=== PATIENT | female | born 1990 | race American Indian/Alaskan Native ===

== ENCOUNTER 2017-04-15 07:42 | Inpatient (IN) | payer OTHER ==
--- NOTE | 2017-04-15 07:55 | Emergency Department Report ---
ED General Adult HPI - General Chief complaint: Seizure Stated complaint: SEIZURE Time Seen by Provider: 04/15/17 07:50 Source: patient, EMS (verbal report received from EMS.ems notes not available at time of chart dictation) Limitations: Other (the patient is a aphasic/dysarthric. However, she is able to answer to yes no questions, and she is able to write down some answers.) - History of Present Illness Initial comments: This is a 26-year-old female. She has previously unknown to me. The patient is brought to the hospital by EMS for seizure and altered mental status. EMS reports that they got a call at 7:00 AM. 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 They report normal fingerstick in the field. Upon arrival to the ER, the patient was nonverbal. She was awake , and was able to follow commands, but indicated that she is unable to formulate words. The patient indicated that she is not having headache, neck pain, chest pain, abdominal pain or shortness of breath. The patient did indicate that she was taking Trileptal by writing it down. The patient is unable to describe exacerbating or relieving factors. -: Sudden Consistency: constant Improves with: none Worsens with: none Associated Symptoms: denies: chest pain - Related Data Home Medications Medication Instructions Recorded Confirmed Last Taken carBAMazepine [TEGretol] 200 mg PO Q12HR 04/15/17 04/15/17 04/14/17 Previous Rx's Medication Instructions Recorded Last Taken Type OXcarbazepine [Trileptal] 600 mg PO BID #60 tablet 04/16/17 Unknown Rx SUMAtriptan SUCCINATE [Imitrex] 50 mg PO Q4H PRN #14 tablet 04/16/17 Unknown Rx Allergies Allergy/AdvReac Type Severity Reaction Status Date / Time No Known Allergies Allergy Unverified 04/15/17 11:27 ED Review of Systems ROS: Stated complaint: SEIZURE Other details as noted in HPI Comment: Unobtainable due to pts medical conditions ED Past Medical Hx - Medications Home Medications: Home Medications Medication Instructions Recorded Confirmed Last Taken Type carBAMazepine [TEGretol] 200 mg PO Q12HR 04/15/17 04/15/17 04/14/17 History OXcarbazepine [Trileptal] 600 mg PO BID #60 tablet 04/16/17 Unknown Rx SUMAtriptan SUCCINATE [Imitrex] 50 mg PO Q4H PRN #14 tablet 04/16/17 Unknown Rx ED Physical Exam - General Limitations: Physical Limitation General appearance: alert, in distress - Head Head exam: Present: atraumatic, normocephalic - Eye Eye exam: Present: normal appearance, EOMI. Absent: nystagmus - ENT ENT exam: Present: normal exam, normal orophraynx, mucous membranes moist, normal external ear exam - Neck Neck exam: Present: normal inspection, full ROM. Absent: tenderness, meningismus - Respiratory Respiratory exam: Present: normal lung sounds bilaterally. Absent: respiratory distress, wheezes, rales, rhonchi, stridor, chest wall tenderness, accessory muscle use, decreased breath sounds, prolonged expiratory - Cardiovascular Cardiovascular Exam: Present: normal rhythm, tachycardia, normal heart sounds. Absent: systolic murmur, diastolic murmur, rubs, gallop - GI/Abdominal GI/Abdominal exam: Present: soft, normal bowel sounds. Absent: distended, tenderness, guarding, rebound, rigid, pulsatile mass - Extremities Exam Extremities exam: Present: normal inspection, full ROM, normal capillary refill. Absent: tenderness, pedal edema, joint swelling, calf tenderness - Back Exam Back exam: Present: normal inspection, full ROM. Absent: tenderness, CVA tenderness (R), CVA tenderness (L), muscle spasm, paraspinal tenderness, vertebral tenderness - Neurological Exam Neurological exam: Present: alert, other (Extraocular movements intact. Tongue midline. No facial droop. Facial sensation intact to light touch in the V1, V2 , V3 distribution bilaterally. 5 and 5 strength in 4 extremities.. Sensation is intact to light touch in 4 extremities.). Absent: motor sensory deficit - Psychiatric Psychiatric exam: Present: anxious - Skin Skin exam: Present: warm, dry, intact, normal color. Absent: rash ED Course Vital Signs 04/15/17 04/15/17 04/15/17 07:48 08:16 08:54 Temperature 98.7 F Pulse Rate 108 H 87 Respiratory 18 18 Rate Blood Pressure 142/82 Blood Pressure 131/83 [Right] O2 Sat by Pulse 99 99 Oximetry 04/15/17 08:57 Temperature Pulse Rate Respiratory 18 Rate Blood Pressure Blood Pressure [Right] O2 Sat by Pulse 99 Oximetry - Reevaluation(s) Reevaluation #1: 04/15/17 08:03 differential diagnosis: Josh's paralysis, seizure, stroke, transient ischemic attack, heatstroke, conversion disorder, electrolyte derangement, urinary tract infection, pneumonia Assessment and plan: 26-year-old female with reported history of seizure in a hot work environment. The patient's rectal temperature is 90.8 degrees, she is awake, and follows commands, and has a nonlateralizing, nonfocal neurologic examination. The patient is unable to speak in clear sentences, however, she is able nod her head to "yes/no" questions, and she is able to write legibly. As per verbal report from EMS, symptoms started just before 7:00 AM. Code stroke is called overhead. Patient indicated that she is not . Reevaluation #2: 04/15/17 09:16 The patient is seen and interviewed by stroke neurology, Dr. Dutta. He does not recommend tpa at this this time. He does recommend emergent MR of the brain and MR angiogram, recommended admission to the medical service. Aspirin is ordered. Case is presented to the nurse practitioner of the medical service, John Diamond, and she accepts the patient to her service. 04/15/17 10:06 Reevaluation #3: 04/15/17 11:18 patient speaking in full sentences to her significant other at this time. MR is negative ED Medical Decision Making - Lab Data Result diagrams: 04/16/17 04:33 04/16/17 04:33 Vital Signs 04/15/17 04/15/17 04/15/17 07:48 08:16 08:54 Temperature 98.7 F Pulse Rate 108 H 87 Respiratory 18 18 Rate Blood Pressure 142/82 Blood Pressure 131/83 [Right] O2 Sat by Pulse 99 99 Oximetry 04/15/17 08:57 Temperature Pulse Rate Respiratory 18 Rate Blood Pressure Blood Pressure [Right] O2 Sat by Pulse 99 Oximetry Lab Results 04/15/17 04/15/17 04/15/17 Range/Units 07:50 07:50 07:50 WBC 7.9 (4.5-11.0) K/mm3 RBC 4.38 (3.65-5.03) M/mm3 Hgb 13.6 (10.1-14.3) gm/dl Hct 38.7 (30.3-42.9) % MCV 88 (79-97) fl MCH 31 (28-32) pg MCHC 35 H (30-34) % RDW 13.1 L (13.2-15.2) % Plt Count 299 (140-440) K/mm3 Lymph % (Auto) 35.9 H (13.4-35.0) % [place] % (Auto) 7.0 (0.0-7.3) % Eos % (Auto) 1.7 (0.0-4.3) % Baso % (Auto) 0.4 (0.0-1.8) % Lymph # 2.8 (1.2-5.4) K/mm3 [place] # 0.6 (0.0-0.8) K/mm3 Eos # 0.1 (0.0-0.4) K/mm3 Baso # 0.0 (0.0-0.1) K/mm3 Seg Neutrophils % 55.0 (40.0-70.0) % Seg Neutrophils # 4.4 (1.8-7.7) K/mm3 PT 13.5 (12.2-14.9) Sec. INR 0.98 (0.87-1.13) APTT 24.6 (24.2-36.6) Sec. Thrombin Time 15.7 (15.1-19.6) Sec. Sodium 140 (137-145) mmol/L Potassium 3.9 (3.6-5.0) mmol/L Chloride 102.4 (98-107) mmol/L Carbon Dioxide 24 (22-30) mmol/L Anion Gap 18 mmol/L BUN 7 (7-17) mg/dL Creatinine 0.6 L (0.7-1.2) mg/dL Estimated GFR > 60 ml/min BUN/Creatinine Ratio 11.66 % Glucose 112 H (65-100) mg/dL Lactic Acid (0.7-2.0) mmol/L Calcium 9.1 (8.4-10.2) mg/dL Total Bilirubin 0.30 (0.1-1.2) mg/dL AST 20 (5-40) units/L ALT 15 (7-56) units/L Alkaline Phosphatase 52 (35-129) units/L Total Creatine Kinase 151 H (30-135) units/L CK-MB (CK-2) 1.4 (0.0-4.0) ng/mL CK-MB (CK-2) Rel Index 0.9 (0-4) Troponin T < 0.010 (0.00-0.029) ng/mL Total Protein 7.7 (6.3-8.2) g/dL Albumin 4.3 (3.9-5) g/dL Albumin/Globulin Ratio 1.3 % HCG, Quant (0-4) mIU/mL Urine Color (Yellow) Urine Turbidity (Clear) Urine pH (5.0-7.0) Ur Specific [place] (1.003-1.030) Urine Protein (Negative) mg/dL Urine Glucose (UA) (Negative) mg/dL Urine Ketones (Negative) mg/dL Urine Blood (Negative) Urine Nitrite (Negative) Urine Bilirubin (Negative) Urine Urobilinogen (<2.0) mg/dL Ur Leukocyte Esterase (Negative) Urine WBC (Auto) (0.0-6.0) /HPF Urine RBC (Auto) (0.0-6.0) /HPF U Epithel Cells (Auto) (0-13.0) /HPF Urine Bacteria (Auto) (Negative) /HPF Salicylates (2.8-20.0) mg/dL Acetaminophen (10.0-30.0) ug/mL Plasma/Serum Alcohol (0-0.07) gm% 04/15/17 04/15/17 04/15/17 Range/Units 07:50 07:50 07:50 WBC (4.5-11.0) K/mm3 RBC (3.65-5.03) M/mm3 Hgb (10.1-14.3) gm/dl Hct (30.3-42.9) % MCV (79-97) fl MCH (28-32) pg MCHC (30-34) % RDW (13.2-15.2) % Plt Count (140-440) K/mm3 Lymph % (Auto) (13.4-35.0) % [place] % (Auto) (0.0-7.3) % Eos % (Auto) (0.0-4.3) % Baso % (Auto) (0.0-1.8) % Lymph # (1.2-5.4) K/mm3 [place] # (0.0-0.8) K/mm3 Eos # (0.0-0.4) K/mm3 Baso # (0.0-0.1) K/mm3 Seg Neutrophils % (40.0-70.0) % Seg Neutrophils # (1.8-7.7) K/mm3 PT (12.2-14.9) Sec. INR (0.87-1.13) APTT (24.2-36.6) Sec. Thrombin Time (15.1-19.6) Sec. Sodium (137-145) mmol/L Potassium (3.6-5.0) mmol/L Chloride (98-107) mmol/L Carbon Dioxide (22-30) mmol/L Anion Gap mmol/L BUN (7-17) mg/dL Creatinine (0.7-1.2) mg/dL Estimated GFR ml/min BUN/Creatinine Ratio % Glucose (65-100) mg/dL Lactic Acid (0.7-2.0) mmol/L Calcium (8.4-10.2) mg/dL Total Bilirubin (0.1-1.2) mg/dL AST (5-40) units/L ALT (7-56) units/L Alkaline Phosphatase (35-129) units/L Total Creatine Kinase (30-135) units/L CK-MB (CK-2) (0.0-4.0) ng/mL CK-MB (CK-2) Rel Index (0-4) Troponin T (0.00-0.029) ng/mL Total Protein (6.3-8.2) g/dL Albumin (3.9-5) g/dL Albumin/Globulin Ratio % HCG, Quant (0-4) mIU/mL Urine Color (Yellow) Urine Turbidity (Clear) Urine pH (5.0-7.0) Ur Specific [place] (1.003-1.030) Urine Protein (Negative) mg/dL Urine Glucose (UA) (Negative) mg/dL Urine Ketones (Negative) mg/dL Urine Blood (Negative) Urine Nitrite (Negative) Urine Bilirubin (Negative) Urine Urobilinogen (<2.0) mg/dL Ur Leukocyte Esterase (Negative) Urine WBC (Auto) (0.0-6.0) /HPF Urine RBC (Auto) (0.0-6.0) /HPF U Epithel Cells (Auto) (0-13.0) /HPF Urine Bacteria (Auto) (Negative) /HPF Salicylates < 0.3 L (2.8-20.0) mg/dL Acetaminophen < 15.0 (10.0-30.0) ug/mL Plasma/Serum Alcohol < 0.01 (0-0.07) gm% 04/15/17 04/15/17 04/15/17 Range/Units 07:50 08:27 09:19 WBC (4.5-11.0) K/mm3 RBC (3.65-5.03) M/mm3 Hgb (10.1-14.3) gm/dl Hct (30.3-42.9) % MCV (79-97) fl MCH (28-32) pg MCHC (30-34) % RDW (13.2-15.2) % Plt Count (140-440) K/mm3 Lymph % (Auto) (13.4-35.0) % [place] % (Auto) (0.0-7.3) % Eos % (Auto) (0.0-4.3) % Baso % (Auto) (0.0-1.8) % Lymph # (1.2-5.4) K/mm3 [place] # (0.0-0.8) K/mm3 Eos # (0.0-0.4) K/mm3 Baso # (0.0-0.1) K/mm3 Seg Neutrophils % (40.0-70.0) % Seg Neutrophils # (1.8-7.7) K/mm3 PT (12.2-14.9) Sec. INR (0.87-1.13) APTT (24.2-36.6) Sec. Thrombin Time (15.1-19.6) Sec. Sodium (137-145) mmol/L Potassium (3.6-5.0) mmol/L Chloride (98-107) mmol/L Carbon Dioxide (22-30) mmol/L Anion Gap mmol/L BUN (7-17) mg/dL Creatinine (0.7-1.2) mg/dL Estimated GFR ml/min BUN/Creatinine Ratio % Glucose (65-100) mg/dL Lactic Acid 1.40 (0.7-2.0) mmol/L Calcium (8.4-10.2) mg/dL Total Bilirubin (0.1-1.2) mg/dL AST (5-40) units/L ALT (7-56) units/L Alkaline Phosphatase (35-129) units/L Total Creatine Kinase (30-135) units/L CK-MB (CK-2) (0.0-4.0) ng/mL CK-MB (CK-2) Rel Index (0-4) Troponin T (0.00-0.029) ng/mL Total Protein (6.3-8.2) g/dL Albumin (3.9-5) g/dL Albumin/Globulin Ratio % HCG, Quant < 2 (0-4) mIU/mL Urine Color Straw (Yellow) Urine Turbidity Clear (Clear) Urine pH 7.0 (5.0-7.0) Ur Specific [place] 1.004 (1.003-1.030) Urine Protein <15 mg/dl (Negative) mg/dL Urine Glucose (UA) Neg (Negative) mg/dL Urine Ketones Neg (Negative) mg/dL Urine Blood Neg (Negative) Urine Nitrite Neg (Negative) Urine Bilirubin Neg (Negative) Urine Urobilinogen < 2.0 (<2.0) mg/dL Ur Leukocyte Esterase Neg (Negative) Urine WBC (Auto) 1.0 (0.0-6.0) /HPF Urine RBC (Auto) 2.0 (0.0-6.0) /HPF U Epithel Cells (Auto) 2.0 (0-13.0) /HPF Urine Bacteria (Auto) 1+ (Negative) /HPF Salicylates (2.8-20.0) mg/dL Acetaminophen (10.0-30.0) ug/mL Plasma/Serum Alcohol (0-0.07) gm% - EKG Data -: EKG Interpreted by Me EKG shows normal: sinus rhythm, axis, intervals, QRS complexes, ST-T waves - Radiology Data Radiology results: report reviewed, image reviewed Noncontrast CT scan of the brain is negative Critical care attestation.: If time is entered above; I have spent that time in minutes in the direct care of this critically ill patient, excluding procedure time. ED Disposition Clinical Impression: Dysarthria, Convulsion Disposition: [id number] OP ADMIT IP TO THIS HOSP Is pt being admited?: Yes Does the pt Need Aspirin: Yes Condition: Good
[2017-04-15 08:08] LABS: Basophils % (Auto) 0.4 % (0.0-1.8); Eosinophils % (Auto) 1.7 % (0.0-4.3); Hematocrit 38.7 % (30.3-42.9); Hemoglobin 13.6 gm/dl (10.1-14.3); Mean Corpuscular HGB Conc 35 % (30-34); Mean Corpuscular Hemoglobin 31 pg (28-32); Mean Corpuscular Volume 88 fl (79-97); Platelet Count 299 K/mm3 (140-440); Red Blood Count 4.38 M/mm3 (3.65-5.03); Red Cell Distribution Width 13.1 % (13.2-15.2); White Blood Count 7.9 K/mm3 (4.5-11.0)
[2017-04-15 08:21] LABS: INR 0.98 (0.87-1.13); Partial Thromboplastin Time 24.6 Sec. (24.2-36.6)
[2017-04-15 08:28] LABS: Alanine Aminotransferase 15 units/L (7-56); Albumin 4.3 g/dL (3.9-5); Albumin/Globulin Ratio 1.3 %; Alkaline Phosphatase 52 units/L (35-129); Anion Gap 18 mmol/L; BUN/Creatinine Ratio 11.66; Blood Urea Nitrogen 7 mg/dL (7-17); Calcium 9.1 mg/dL (8.4-10.2); Carbon Dioxide 24 mmol/L (22-30); Chloride 102.4 mmol/L (98-107); Creatine Kinase 151 units/L (30-135); Creatine Kinase MB 1.4 ng/mL (0.0-4.0); Glucose 112 mg/dL (65-100); Potassium 3.9 mmol/L (3.6-5.0); Sodium 140 mmol/L (137-145); Total Protein 7.7 g/dL (6.3-8.2)
--- NOTE | 2017-04-15 08:32 | Cat Scan Report ---
CRANIAL CT SCAN: Neurologic changes. Serial contiguous axial images were obtained through the cranium. Intravenous contrast material was not administered. The ventricles are normal in size and appearance. There is no mass effect or midline shift. No areas of abnormally increased or decreased attenuation are seen. No mass lesion is seen. The mastoid air cells and visualized portions of the sinuses are normal. IMPRESSION: Cranial CT scan within normal limits. Report called to Dr. Norris 8:25 AM.
[2017-04-15 09:46] LABS: Urine Drugs of Abuse Note Disclamer
[2017-04-15 10:02] LABS: Bacteria,Urine 1+ /HPF (Negative); Bilirubin,Urine NEG (Negative); Blood,Urine NEG (Negative); Ketones,Urine NEG (Negative); Leukocyte Esterase,Urine NEG (Negative); Nitrite,Urine NEG (Negative); Protein,Urine <15 mg/dL mg/dL (Negative); Urobilinogen,Urine < 2.0 mg/dL (<2.0)
[2017-04-15] MEDS ORDERED: BABY ASPIRIN PO ONE (10:08)
--- NOTE | 2017-04-15 10:32 | History and Physical Report ---
<NORM HAZEL - Last Filed: 04/15/17 14:53> History of Present Illness Date of examination: 04/15/17 Date of admission: 04/15/2017 Chief complaint: Tonic-clonic seizure History of present illness: Patient is a 26-year-old -Guyanese female with past medical history of seizure who is brought to the hospital by EMS for seizure and altered mental status. Patient currently nonverbal follows simple command. Patient understood the basic words spoken, but struggle to get words out, Therefore poor historian. Patient had generalized tonic-clonic seizure this morning while she was at work. Patient coworkers report that she had a normal fingerstick in the field. History obtained from ER physician and charts. patient denies headache, chest pain shortness of breath or neck pain. Patient Tegretol 200mg BID by mouth at home. Past History Past Medical History: seizures ( Tegretol 200mg daily ) Past Surgical History: No surgical history Social history: (Lesbian ), smoking Family history: diabetes, hypertension Medications and Allergies Allergies Allergy/AdvReac Type Severity Reaction Status Date / Time No Known Allergies Allergy Unverified 04/15/17 11:27 Home Medications Medication Instructions Recorded Confirmed Last Taken Type carBAMazepine [TEGretol] 200 mg PO Q12HR 04/15/17 04/15/17 04/14/17 History Review of Systems Constitutional: no weight loss, no weight gain, no fever, no chills, no sweats, no night sweats Ears, nose, mouth and throat: no ear pain, no ear discharge, no tinnitis, no decreased hearing Breasts: no swelling, no mass Cardiovascular: no chest pain, no orthopnea, no palpitations, no rapid/ irregular heart beat, no syncope Respiratory: no cough with sputum, no excessive sputum, no hemoptysis, no shortness of breath Gastrointestinal: no vomiting, no diarrhea, no constipation, no change in bowel habits, no hematemesis Genitourinary Female: no dysmenorrhea, no pelvic pain, no flank pain, no menorrhagia, no dysuria Menstruation: no currently menstrual, no premenarcheal, no post hysterectomy, no ammenorrhea, no ammenorrhea on BC Rectal: no pain Musculoskeletal: no neck stiffness, no neck pain, no shooting arm pain, no arm numbness/tingling Integumentary: no rash, no pruritis, no redness, no sores Neurological: no head injury, no transient paralysis, no paralysis, no weakness Psychiatric: no anxiety, no memory loss, no change in sleep habits Endocrine: no cold intolerance, no heat intolerance, no polyphagia Hematologic/Lymphatic: no easy bruising, no easy bleeding Allergic/Immunologic: no urticaria, no allergic rhinitis Exam - Constitutional Vitals: Temp Pulse Resp BP Pulse Ox 98.7 F 87 18 131/83 99 04/15/17 08:16 04/15/17 08:54 04/15/17 08:57 04/15/17 08:54 04/15/17 08:57 General appearance: Present: no acute distress, other (nonverbal) - EENT Eyes: Present: PERRL ENT: hearing intact - Neck Neck: Present: supple - Respiratory Respiratory effort: normal Respiratory: bilateral: CTA - Cardiovascular Heart rate: 69 Rhythm: regular - Extremities Extremities: no ischemia Peripheral Pulses: within normal limits - Abdominal General gastrointestinal: Present: soft, non-tender - Rectal Rectal Exam: deferred - Integumentary Integumentary: Present: clear, warm, dry - Musculoskeletal Musculoskeletal: strength equal bilaterally - Psychiatric Psychiatric: other (nonverbal) - Neurologic Neurologic: CNII-XII intact, other - Allied Health Allied health notes reviewed: nursing Results - Labs CBC & Chem 7: 04/15/17 07:50 04/15/17 07:50 Labs: Laboratory Last Values WBC 7.9 K/mm3 (4.5-11.0) 04/15/17 07:50 RBC 4.38 M/mm3 (3.65-5.03) 04/15/17 07:50 Hgb 13.6 gm/dl (10.1-14.3) 04/15/17 07:50 Hct 38.7 % (30.3-42.9) 04/15/17 07:50 MCV 88 fl (79-97) 04/15/17 07:50 MCH 31 pg (28-32) 04/15/17 07:50 MCHC 35 % (30-34) H 04/15/17 07:50 RDW 13.1 % (13.2-15.2) L 04/15/17 07:50 Plt Count 299 K/mm3 (140-440) 04/15/17 07:50 Lymph % (Auto) 35.9 % (13.4-35.0) H 04/15/17 07:50 Ballard % (Auto) 7.0 % (0.0-7.3) 04/15/17 07:50 Eos % (Auto) 1.7 % (0.0-4.3) 04/15/17 07:50 Baso % (Auto) 0.4 % (0.0-1.8) 04/15/17 07:50 Lymph # 2.8 K/mm3 (1.2-5.4) 04/15/17 07:50 Ballard # 0.6 K/mm3 (0.0-0.8) 04/15/17 07:50 Eos # 0.1 K/mm3 (0.0-0.4) 04/15/17 07:50 Baso # 0.0 K/mm3 (0.0-0.1) 04/15/17 07:50 Seg Neutrophils % 55.0 % (40.0-70.0) 04/15/17 07:50 Seg Neutrophils # 4.4 K/mm3 (1.8-7.7) 04/15/17 07:50 PT 13.5 Sec. (12.2-14.9) 04/15/17 07:50 INR 0.98 (0.87-1.13) 04/15/17 07:50 APTT 24.6 Sec. (24.2-36.6) 04/15/17 07:50 Thrombin Time 15.7 Sec. (15.1-19.6) 04/15/17 07:50 Sodium 140 mmol/L (137-145) 04/15/17 07:50 Potassium 3.9 mmol/L (3.6-5.0) 04/15/17 07:50 Chloride 102.4 mmol/L (98-107) 04/15/17 07:50 Carbon Dioxide 24 mmol/L (22-30) 04/15/17 07:50 Anion Gap 18 mmol/L 04/15/17 07:50 BUN 7 mg/dL (7-17) 04/15/17 07:50 Creatinine 0.6 mg/dL (0.7-1.2) L 04/15/17 07:50 Estimated GFR > 60 ml/min 04/15/17 07:50 BUN/Creatinine Ratio 11.66 % 04/15/17 07:50 Glucose 112 mg/dL (65-100) H 04/15/17 07:50 Lactic Acid 1.40 mmol/L (0.7-2.0) 04/15/17 08:27 Calcium 9.1 mg/dL (8.4-10.2) 04/15/17 07:50 Total Bilirubin 0.30 mg/dL (0.1-1.2) 04/15/17 07:50 AST 20 units/L (5-40) 04/15/17 07:50 ALT 15 units/L (7-56) 04/15/17 07:50 Alkaline Phosphatase 52 units/L (35-129) 04/15/17 07:50 Total Creatine Kinase 151 units/L (30-135) H 04/15/17 07:50 CK-MB (CK-2) 1.4 ng/mL (0.0-4.0) 04/15/17 07:50 CK-MB (CK-2) Rel Index 0.9 (0-4) 04/15/17 07:50 Troponin T < 0.010 ng/mL (0.00-0.029) 04/15/17 07:50 Total Protein 7.7 g/dL (6.3-8.2) 04/15/17 07:50 Albumin 4.3 g/dL (3.9-5) 04/15/17 07:50 Albumin/Globulin Ratio 1.3 % 04/15/17 07:50 HCG, Quant < 2 mIU/mL (0-4) 04/15/17 07:50 Urine Color Straw (Yellow) 04/15/17 09:19 Urine Turbidity Clear (Clear) 04/15/17 09:19 Urine pH 7.0 (5.0-7.0) 04/15/17 09:19 Ur Specific Gilman 1.004 (1.003-1.030) 04/15/17 09:19 Urine Protein <15 mg/dl mg/dL (Negative) 04/15/17 09:19 Urine Glucose (UA) Neg mg/dL (Negative) 04/15/17 09:19 Urine Ketones Neg mg/dL (Negative) 04/15/17 09:19 Urine Blood Neg (Negative) 04/15/17 09:19 Urine Nitrite Neg (Negative) 04/15/17 09:19 Urine Bilirubin Neg (Negative) 04/15/17 09:19 Urine Urobilinogen < 2.0 mg/dL (<2.0) 04/15/17 09:19 Ur Leukocyte Esterase Neg (Negative) 04/15/17 09:19 Urine WBC (Auto) 1.0 /HPF (0.0-6.0) 04/15/17 09:19 Urine RBC (Auto) 2.0 /HPF (0.0-6.0) 04/15/17 09:19 U Epithel Cells (Auto) 2.0 /HPF (0-13.0) 04/15/17 09:19 Urine Bacteria (Auto) 1+ /HPF (Negative) 04/15/17 09:19 Salicylates < 0.3 mg/dL (2.8-20.0) L 04/15/17 07:50 Acetaminophen < 15.0 ug/mL (10.0-30.0) 04/15/17 07:50 Plasma/Serum Alcohol < 0.01 gm% (0-0.07) 04/15/17 07:50 - Imaging and Cardiology MRI - head: image reviewed (normal MRA, neck,head and brain ) Assessment and Plan Assessment and plan: Patient is a 26-year-old -Guyanese female with past medical history of seizure who is brought to the hospital by EMS for seizure and altered mental status. Patient Tegretol 200mg BID by mouth at home. Patient has normal MRA, neck,head and brain Tonic-Clonic Convulsion Negative MRA of the neck, head and brain Normal Ct of the head EEG requested for service. Started on home antiseizure Tegretol 200mg twice a day by mouth. IV Ativan as necessary IV fluid hydration Oxygen as needed Rule out Cerebrovascular accident (CVA) Started on Asprin Normal CT of the head and MR of the brain TPA not recommend per Neurology Neurology consulted Ongoing Cigarette Smoking Smoking sensation counseling done patient was strongly advised to quit smoking and patient agreed upon course of function. DVT prophylaxis Lovenox <NASEEM KENDRICK - Last Filed: 04/15/17 15:05> History of Present Illness Date of admission: 04/15/17 10:35 Medications and Allergies Active Meds: Active Medications Acetaminophen (Tylenol) 650 mg PO Q4H PRN PRN Reason: Pain MILD(1-3)/Fever >100.5/MCCLAIN Aspirin (Aspirin) 325 mg PO QDAY FIONA Bisacodyl (Dulcolax) 10 mg ND QDAY PRN PRN Reason: Constipation unrelieved by MOM Carbamazepine (Tegretol) 200 mg PO Q12HR FIONA Dextrose/Sodium Chloride (D5ns) 1,000 mls @ 75 mls/hr IV DIRECT FIONA Last Admin: 04/15/17 13:25 Dose: 75 mls/hr Lorazepam (Ativan) 2 mg IV Q4H PRN PRN Reason: Seizures Exam - Constitutional Vitals: Temp Pulse Resp BP Pulse Ox 98.6 F 69 18 106/69 100 04/15/17 12:18 04/15/17 12:18 04/15/17 12:18 04/15/17 12:18 04/15/17 14:39 Results - Labs CBC & Chem 7: 04/15/17 07:50 04/15/17 07:50 Labs: Laboratory Last Values WBC 7.9 K/mm3 (4.5-11.0) 04/15/17 07:50 RBC 4.38 M/mm3 (3.65-5.03) 04/15/17 07:50 Hgb 13.6 gm/dl (10.1-14.3) 04/15/17 07:50 Hct 38.7 % (30.3-42.9) 04/15/17 07:50 MCV 88 fl (79-97) 04/15/17 07:50 MCH 31 pg (28-32) 04/15/17 07:50 MCHC 35 % (30-34) H 04/15/17 07:50 RDW 13.1 % (13.2-15.2) L 04/15/17 07:50 Plt Count 299 K/mm3 (140-440) 04/15/17 07:50 Lymph % (Auto) 35.9 % (13.4-35.0) H 04/15/17 07:50 Ballard % (Auto) 7.0 % (0.0-7.3) 04/15/17 07:50 Eos % (Auto) 1.7 % (0.0-4.3) 04/15/17 07:50 Baso % (Auto) 0.4 % (0.0-1.8) 04/15/17 07:50 Lymph # 2.8 K/mm3 (1.2-5.4) 04/15/17 07:50 Ballard # 0.6 K/mm3 (0.0-0.8) 04/15/17 07:50 Eos # 0.1 K/mm3 (0.0-0.4) 04/15/17 07:50 Baso # 0.0 K/mm3 (0.0-0.1) 04/15/17 07:50 Seg Neutrophils % 55.0 % (40.0-70.0) 04/15/17 07:50 Seg Neutrophils # 4.4 K/mm3 (1.8-7.7) 04/15/17 07:50 PT 13.5 Sec. (12.2-14.9) 04/15/17 07:50 INR 0.98 (0.87-1.13) 04/15/17 07:50 APTT 24.6 Sec. (24.2-36.6) 04/15/17 07:50 Thrombin Time 15.7 Sec. (15.1-19.6) 04/15/17 07:50 Sodium 140 mmol/L (137-145) 04/15/17 07:50 Potassium 3.9 mmol/L (3.6-5.0) 04/15/17 07:50 Chloride 102.4 mmol/L (98-107) 04/15/17 07:50 Carbon Dioxide 24 mmol/L (22-30) 04/15/17 07:50 Anion Gap 18 mmol/L 04/15/17 07:50 BUN 7 mg/dL (7-17) 04/15/17 07:50 Creatinine 0.6 mg/dL (0.7-1.2) L 04/15/17 07:50 Estimated GFR > 60 ml/min 04/15/17 07:50 BUN/Creatinine Ratio 11.66 % 04/15/17 07:50 Glucose 112 mg/dL (65-100) H 04/15/17 07:50 Lactic Acid 1.40 mmol/L (0.7-2.0) 04/15/17 08:27 Calcium 9.1 mg/dL (8.4-10.2) 04/15/17 07:50 Total Bilirubin 0.30 mg/dL (0.1-1.2) 04/15/17 07:50 AST 20 units/L (5-40) 04/15/17 07:50 ALT 15 units/L (7-56) 04/15/17 07:50 Alkaline Phosphatase 52 units/L (35-129) 04/15/17 07:50 Total Creatine Kinase 151 units/L (30-135) H 04/15/17 07:50 CK-MB (CK-2) 1.4 ng/mL (0.0-4.0) 04/15/17 07:50 CK-MB (CK-2) Rel Index 0.9 (0-4) 04/15/17 07:50 Troponin T < 0.010 ng/mL (0.00-0.029) 04/15/17 07:50 Total Protein 7.7 g/dL (6.3-8.2) 04/15/17 07:50 Albumin 4.3 g/dL (3.9-5) 04/15/17 07:50 Albumin/Globulin Ratio 1.3 % 04/15/17 07:50 HCG, Quant < 2 mIU/mL (0-4) 04/15/17 07:50 Urine Color Straw (Yellow) 04/15/17 09:19 Urine Turbidity Clear (Clear) 04/15/17 09:19 Urine pH 7.0 (5.0-7.0) 04/15/17 09:19 Ur Specific Gilman 1.004 (1.003-1.030) 04/15/17 09:19 Urine Protein <15 mg/dl mg/dL (Negative) 04/15/17 09:19 Urine Glucose (UA) Neg mg/dL (Negative) 04/15/17 09:19 Urine Ketones Neg mg/dL (Negative) 04/15/17 09:19 Urine Blood Neg (Negative) 04/15/17 09:19 Urine Nitrite Neg (Negative) 04/15/17 09:19 Urine Bilirubin Neg (Negative) 04/15/17 09:19 Urine Urobilinogen < 2.0 mg/dL (<2.0) 04/15/17 09:19 Ur Leukocyte Esterase Neg (Negative) 04/15/17 09:19 Urine WBC (Auto) 1.0 /HPF (0.0-6.0) 04/15/17 09:19 Urine RBC (Auto) 2.0 /HPF (0.0-6.0) 04/15/17 09:19 U Epithel Cells (Auto) 2.0 /HPF (0-13.0) 04/15/17 09:19 Urine Bacteria (Auto) 1+ /HPF (Negative) 04/15/17 09:19 Salicylates < 0.3 mg/dL (2.8-20.0) L 04/15/17 07:50 Urine Opiates Screen Presumptive negative 04/15/17 09:19 Urine Methadone Screen Presumptive negative 04/15/17 09:19 Acetaminophen < 15.0 ug/mL (10.0-30.0) 04/15/17 07:50 Ur Barbiturates Screen Presumptive negative 04/15/17 09:19 Ur Phencyclidine Scrn Presumptive negative 04/15/17 09:19 Ur Amphetamines Screen Presumptive negative 04/15/17 09:19 U Benzodiazepines Scrn Presumptive negative 04/15/17 09:19 Urine Cocaine Screen Presumptive negative 04/15/17 09:19 U Marijuana (THC) Screen Presumptive negative 04/15/17 09:19 Drugs of Abuse Note Disclamer 04/15/17 09:19 Plasma/Serum Alcohol < 0.01 gm% (0-0.07) 04/15/17 07:50 Assessment and Plan Assessment and plan: I saw and evaluated the patient. I agree with the findings and the plan of care as documented in the Nurse Practitioner's~note, with the following corrections and additions. patient seen and examined, clear lungs, PERRLA, S1,S2, no nystagmus, Patient reports compliance with seizure medications Denies polysubstance abuse Reports headache. Will consult Neurology Continue AED Tyenol#3 for headache. Advance Directives: Yes VTE prophylaxis?: Chemical, Mechanical Plan of care discussed with patient/family: Yes
[2017-04-15] MEDS ORDERED: ATIVAN IV PRN (10:33)
[2017-04-15] MEDS ORDERED: DULCOLAX PR PRN (10:35)
[2017-04-15] MEDS ORDERED: TYLENOL PO PRN (10:35)
--- NOTE | 2017-04-15 10:52 | Magnetic Resonance Report ---
MRI BRAIN WITHOUT CONTRAST INDICATION: Seizure versus CVA. COMPARISON: Head CT from earlier today. FINDINGS: Noncontrast multiplanar and multisequence MRI of the brain demonstrates normal ventricles and sulci without acute infarct, hemorrhage, mass effect or midline shift. No abnormal extra-axial masses or fluid collections. Normal major intracranial vascular flow voids. Normal posterior fossa structures with symmetric seventh and eighth nerve complexes. Symmetric, grossly unremarkable eye globes. Clear paranasal sinuses and mastoid air cells. Nasal septal deviation. Normal midline structures without evidence of Chiari malformation, though cerebellar tonsils reach the foramen magnum. CONCLUSION: No acute intracranial MRI abnormality, as described. Thank you for the opportunity to participate in this patient's care.
--- NOTE | 2017-04-15 10:54 | Magnetic Resonance Report ---
MRA HEAD WITHOUT CONTRAST INDICATION: Seizure versus CVA. COMPARISON: None similar. FINDINGS: MRA of the head performed without intravenous contrast and demonstrates no evidence of flow-limiting stenosis, occlusion or vascular malformation. PCOM seen on the right. Please note that detection of aneurysms less than 5 mm is limited on this exam. CONCLUSION: Normal study of the [place]. Thank you for the opportunity to participate in this patient's care.
--- NOTE | 2017-04-15 10:58 | Magnetic Resonance Report ---
MRA NECK WITHOUT CONTRAST: INDICATION: CVA versus seizure. COMPARISON: None similar. FINDINGS: MRA of the neck performed without IV contrast demonstrates patent aortic arch with normal major branching pattern. Imaged innominate, subclavian, vertebral and carotid arteries appear unremarkable. CONCLUSION: Normal MRA of the neck without significant stenosis. Thank you for the opportunity to participate in this patient's care.
--- NOTE | 2017-04-15 11:05 | Admit Criteria Form ---
Admission Criteria Documentation: SEIZURE Clinical Indications for Admission to Inpatient Care (Place 'X' for any and all applicable criteria): Admission is indicated for seizure and ANY ONE of the following(1)(2)(3)(4)(5): [X ]I. Inpatient admission required rather than observation care (Also use Seizure: Observation Care Criteria as appropriate) because of ANY ONE of the following: [ ]a) Altered mental status that is severe or persistent [ ]b) New focal neurologic deficit that is severe or persistent [ ]c) Metabolic disorder (eg, hypoglycemia, hyponatremia) that is severe or persistent [ ]d) Recurrent seizure [ ]e) Outpatient antiseizure regimen cannot be established (eg , patient cannot tolerate medication, initiation requires inpatient care) [ ]f) Need for ongoing intravenous infusion of antiseizure medication [ ]g) Cardiac arrhythmias of immediate concern [ ]h) Cerebral bleeding, hydrocephalus, or vasospasm monitoring (14) [ ]i) Increased intracranial pressure or cerebral edema monitoring (15) [X ]j) Other treatment or monitoring requiring inpatient admission [ ]II. Status epilepticus [A] or repetitive seizures not controlled with emergent treatment (6)(8) [ ]III. Brain disorder (eg, tumor, edema, and hydrocephalus) that requiring monitoring or intervention available only at inpatient level of care. [ ]IV. Brain insult (eg, severe trauma, stroke, drug toxicity, or withdrawal) that requires monitoring or intervention available only at inpatient level of care (10)(11) Extended stay beyond goal length of stay may be needed for (22) [ ]a) Complications of status epilepticus [ ]b) Refractory status epilepticus [ ]c) Etiology-specific therapy for conditions such as MATERIAL HAULER infection, head injury,eclampsia, severe metabolic abnormalities, and brain tumor [ ]d) Residual neurologic damage, [ ]e) Initiation of significant change to anticonvulsant treatment [ ]f) Older patients (65 years or older) [ ]g) Patient requiring intubation (eg, to protect airway) The original [employer] content created by [employer] has been revised. The portions of the content which have been revised are identified through the use of italic text or in bold, and [employer] has neither reviewed nor approved the modified material. All other unmodified content is copyright [facility] [employer]. Please see references footnoted in the original [facility] edition 2016 Admission Criteria Met: Yes
[2017-04-15] MEDS ORDERED: TYLENOL/CODEINE PO ONE (13:00)
[2017-04-15] MEDS: D5NS 1,000 ML IV SCH (13:25)
[2017-04-16] MEDS: D5NS 1,000 ML IV SCH (01:15)
[2017-04-16 05:35] LABS: Basophils % (Auto) 0.7 % (0.0-1.8); Hematocrit 38.3 % (30.3-42.9); Hemoglobin 12.9 gm/dl (10.1-14.3); Mean Corpuscular HGB Conc 34 % (30-34); Mean Corpuscular Hemoglobin 31 pg (28-32); Mean Corpuscular Volume 91 fl (79-97); Platelet Count 279 K/mm3 (140-440); Red Blood Count 4.23 M/mm3 (3.65-5.03); Red Cell Distribution Width 13.2 % (13.2-15.2); White Blood Count 6.4 K/mm3 (4.5-11.0)
[2017-04-16 05:51] LABS: Anion Gap 16 mmol/L; BUN/Creatinine Ratio 12.85; Blood Urea Nitrogen 9 mg/dL (7-17); Calcium 8.6 mg/dL (8.4-10.2); Carbon Dioxide 24 mmol/L (22-30); Chloride 104.1 mmol/L (98-107); Glucose 109 mg/dL (65-100); Potassium 4.5 mmol/L (3.6-5.0); Sodium 140 mmol/L (137-145)
--- NOTE | 2017-04-16 07:33 | Progress Note ---
Assessment and Plan Assessment and plan: Assessment and Plan Assessment and plan: Patient is a 26-year-old -[place] female with past medical history of seizure who is brought to the hospital by EMS for seizure and altered mental status. Patient Tegretol 200mg BID by mouth at home. Patient has normal MRA, neck,head and brain Tonic-Clonic Convulsion Negative MRA of the neck, head and brain Normal Ct of the head EEG requested for service. Started on home antiseizure Tegretol 200mg twice a day by mouth. IV Ativan as necessary IV fluid hydration Oxygen as needed Rule out Cerebrovascular accident (CVA) Started on Asprin Normal CT of the head and MR of the brain TPA not recommend per Neurology Neurology consulted Tobacco use Smoking sensation counseling done patient was strongly advised to quit smoking and patient agreed upon course of function. DVT prophylaxis [employer] Hospitalist Physical - Constitutional Vitals: Temp Pulse Resp BP Pulse Ox 98.5 F 76 16 99/54 98 04/15/17 23:45 04/15/17 23:45 04/15/17 23:45 04/15/17 23:45 04/15/17 23:45 General appearance: Present: no acute distress, other (nonverbal) Results - Labs CBC & Chem 7: 04/16/17 04:33 04/16/17 04:33 Labs: Laboratory Last Values WBC 6.4 K/mm3 (4.5-11.0) 04/16/17 04:33 RBC 4.23 M/mm3 (3.65-5.03) 04/16/17 04:33 Hgb 12.9 gm/dl (10.1-14.3) 04/16/17 04:33 Hct 38.3 % (30.3-42.9) 04/16/17 04:33 MCV 91 fl (79-97) D 04/16/17 04:33 MCH 31 pg (28-32) 04/16/17 04:33 MCHC 34 % (30-34) 04/16/17 04:33 RDW 13.2 % (13.2-15.2) 04/16/17 04:33 Plt Count 279 K/mm3 (140-440) 04/16/17 04:33 Lymph % (Auto) 36.7 % (13.4-35.0) H 04/16/17 04:33 Baker % (Auto) 7.6 % (0.0-7.3) H 04/16/17 04:33 Eos % (Auto) 2.0 % (0.0-4.3) 04/16/17 04:33 Baso % (Auto) 0.7 % (0.0-1.8) 04/16/17 04:33 Lymph # 2.4 K/mm3 (1.2-5.4) 04/16/17 04:33 Baker # 0.5 K/mm3 (0.0-0.8) 04/16/17 04:33 Eos # 0.1 K/mm3 (0.0-0.4) 04/16/17 04:33 Baso # 0.0 K/mm3 (0.0-0.1) 04/16/17 04:33 Seg Neutrophils % 53.0 % (40.0-70.0) 04/16/17 04:33 Seg Neutrophils # 3.4 K/mm3 (1.8-7.7) 04/16/17 04:33 PT 13.5 Sec. (12.2-14.9) 04/15/17 07:50 INR 0.98 (0.87-1.13) 04/15/17 07:50 APTT 24.6 Sec. (24.2-36.6) 04/15/17 07:50 Thrombin Time 15.7 Sec. (15.1-19.6) 04/15/17 07:50 Sodium 140 mmol/L (137-145) 04/16/17 04:33 Potassium 4.5 mmol/L (3.6-5.0) 04/16/17 04:33 Chloride 104.1 mmol/L (98-107) 04/16/17 04:33 Carbon Dioxide 24 mmol/L (22-30) 04/16/17 04:33 Anion Gap 16 mmol/L 04/16/17 04:33 BUN 9 mg/dL (7-17) 04/16/17 04:33 Creatinine 0.7 mg/dL (0.7-1.2) 04/16/17 04:33 Estimated GFR > 60 ml/min 04/16/17 04:33 BUN/Creatinine Ratio 12.85 % 04/16/17 04:33 Glucose 109 mg/dL (65-100) H 04/16/17 04:33 Lactic Acid 1.40 mmol/L (0.7-2.0) 04/15/17 08:27 Calcium 8.6 mg/dL (8.4-10.2) 04/16/17 04:33 Total Bilirubin 0.30 mg/dL (0.1-1.2) 04/15/17 07:50 AST 20 units/L (5-40) 04/15/17 07:50 ALT 15 units/L (7-56) 04/15/17 07:50 Alkaline Phosphatase 52 units/L (35-129) 04/15/17 07:50 Total Creatine Kinase 151 units/L (30-135) H 04/15/17 07:50 CK-MB (CK-2) 1.4 ng/mL (0.0-4.0) 04/15/17 07:50 CK-MB (CK-2) Rel Index 0.9 (0-4) 04/15/17 07:50 Troponin T < 0.010 ng/mL (0.00-0.029) 04/15/17 07:50 Total Protein 7.7 g/dL (6.3-8.2) 04/15/17 07:50 Albumin 4.3 g/dL (3.9-5) 04/15/17 07:50 Albumin/Globulin Ratio 1.3 % 04/15/17 07:50 HCG, Quant < 2 mIU/mL (0-4) 04/15/17 07:50 Urine Color Straw (Yellow) 04/15/17 09:19 Urine Turbidity Clear (Clear) 04/15/17 09:19 Urine pH 7.0 (5.0-7.0) 04/15/17 09:19 Ur Specific [place] 1.004 (1.003-1.030) 04/15/17 09:19 Urine Protein <15 mg/dl mg/dL (Negative) 04/15/17 09:19 Urine Glucose (UA) Neg mg/dL (Negative) 04/15/17 09:19 Urine Ketones Neg mg/dL (Negative) 04/15/17 09:19 Urine Blood Neg (Negative) 04/15/17 09:19 Urine Nitrite Neg (Negative) 04/15/17 09:19 Urine Bilirubin Neg (Negative) 04/15/17 09:19 Urine Urobilinogen < 2.0 mg/dL (<2.0) 04/15/17 09:19 Ur Leukocyte Esterase Neg (Negative) 04/15/17 09:19 Urine WBC (Auto) 1.0 /HPF (0.0-6.0) 04/15/17 09:19 Urine RBC (Auto) 2.0 /HPF (0.0-6.0) 04/15/17 09:19 U Epithel Cells (Auto) 2.0 /HPF (0-13.0) 04/15/17 09:19 Urine Bacteria (Auto) 1+ /HPF (Negative) 04/15/17 09:19 Salicylates < 0.3 mg/dL (2.8-20.0) L 04/15/17 07:50 Urine Opiates Screen Presumptive negative 04/15/17 09:19 Urine Methadone Screen Presumptive negative 04/15/17 09:19 Acetaminophen < 15.0 ug/mL (10.0-30.0) 04/15/17 07:50 Ur Barbiturates Screen Presumptive negative 04/15/17 09:19 Ur Phencyclidine Scrn Presumptive negative 04/15/17 09:19 Ur Amphetamines Screen Presumptive negative 04/15/17 09:19 U Benzodiazepines Scrn Presumptive negative 04/15/17 09:19 Urine Cocaine Screen Presumptive negative 04/15/17 09:19 U Marijuana (THC) Screen Presumptive negative 04/15/17 09:19 Drugs of Abuse Note Disclamer 04/15/17 09:19 Plasma/Serum Alcohol < 0.01 gm% (0-0.07) 04/15/17 07:50
[2017-04-16] MEDS ORDERED: IMITREX PO PRN (09:23)
[2017-04-16] MEDS ORDERED: ASPIRIN PO SCH (10:00)
--- NOTE | 2017-04-16 10:14 | Discharge Summary ---
Providers - Providers Date of Admission: 04/15/17 10:35 Date of discharge: 04/16/17 Attending physician: NASEEM KENDRICK MD 04/15/17 12:23 Consult to Physician [CONS] Routine Consulting Provider: BESSIE OLIVER Reason For Exam: seizure Place consult to:: DR Oliver Notified:: message left Phone number called:: [phone] Was contact made?: No 04/15/17 18:11 Speech Therapy Evaluation and Treat [CONS] Routine Reason For Exam: sudden aphasia Primary care physician: SENIOR COURT OFFICE ASSISTANT Hospitalization Condition: Good Hospital course: Patient is a 26-year-old -Faroese female with past medical history of seizure who is brought to the hospital by EMS for seizure and altered mental status. Patient currently nonverbal follows simple command. Patient was diagnosed for tonic clonic convulsion, Migraine and Ongoing tobacco smoking . She has been treated with anticonvulsants, IV fluid and tryptamine. No seizure episode since admission. Patient upon arrival postictal state, she was to struggle to get words out but today is much improved. Patient currently alert and oriented to person,place,time and situation. She is being discharged on Trileptal and increased the does per neurology. Patient cleared by neurology. Patient stable for discharge. She has been ambulating back and forth to the bathroom unassisted. Also Ongoing tobacco use smoking cessation counseling done patient strongly advised to quit. Patient agreed upon course of action. Patient advised to follow-up with neurology. Diagnosed Tonic-Clonic Convulsion Rule out Cerebrovascular accident (CVA) Ongoing tobacco use smoking Migraine Disposition: DC- TO HOME OR SELFCARE Time spent for discharge: 33 minutes Core Measure Documentation - Palliative Care Palliative Care/ Comfort Measures: Not Applicable - Core Measures Any of the following diagnoses?: none Exam - Constitutional Vitals: Temp Pulse Resp BP Pulse Ox 98.0 F 89 18 92/51 97 04/16/17 07:42 04/16/17 07:42 04/16/17 07:42 04/16/17 07:42 04/16/17 09:36 General appearance: Present: no acute distress - EENT Eyes: Present: PERRL ENT: hearing intact - Neck Neck: Present: supple - Respiratory Respiratory effort: normal - Cardiovascular Heart rate: 89 Rhythm: regular Heart Sounds: Present: S1 & S2 - Extremities Extremities: no ischemia Peripheral Pulses: within normal limits - Abdominal General gastrointestinal: Present: soft, non-tender Female genitourinary: Present: deferred - Rectal Rectal Exam: deferred - Integumentary Integumentary: Present: clear, warm, dry - Musculoskeletal Musculoskeletal: strength equal bilaterally - Psychiatric Psychiatric: appropriate mood/affect - Neurologic Neurologic: CNII-XII intact - Allied Health Allied health notes reviewed: nursing Plan Follow up with: PRIMARY CAREMD [Primary Care Provider] - 3-5 Days Prescriptions: OXcarbazepine [Trileptal] 600 mg PO BID #60 tablet SUMAtriptan SUCCINATE [Imitrex] 50 mg PO Q4H PRN #14 tablet PRN Reason: Migraine Headache
--- NOTE | 2017-04-16 10:49 | Consultation ---
History of Present Illness Consult date: 04/16/17 Requesting physician: NASEEM KENDRICK Reason for Consult: seizure Chief complaint: seizure History of present illness: 26-year-old female Hx seizure since 2011 compliant on Trileptal 500mg BID recent stress of typical migraine and buying home brought to the hospital by EMS for seizure and altered mental status on 04/15. EMS reports that they got a call at 7:00 AM. 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 Upon arrival to the ER, the patient was nonverbal. She was awake, and was able to follow commands, but indicated that she is unable to formulate words. Sz lasted ? 1-2 mins. There were no clear aggravating, relieving or temporal factors. Severity was enough to cause LOC.. Past History Past Medical History: seizures ( Tegretol 200mg daily ) Past Surgical History: No surgical history Social history: (Lesbian ), smoking Family history: diabetes, hypertension Medications and Allergies Allergies Allergy/AdvReac Type Severity Reaction Status Date / Time No Known Allergies Allergy Unverified 04/15/17 11:27 Home Medications Medication Instructions Recorded Confirmed Last Taken Type carBAMazepine [TEGretol] 200 mg PO Q12HR 04/15/17 04/15/17 04/14/17 History SUMAtriptan SUCCINATE [Imitrex] 50 mg PO Q4H PRN #14 tablet 04/16/17 Unknown Rx Active Meds: Active Medications Acetaminophen (Tylenol) 650 mg PO Q4H PRN PRN Reason: Pain MILD(1-3)/Fever >100.5/MCCLAIN Aspirin (Aspirin) 325 mg PO QDAY [facility] Last Admin: 04/16/17 10:39 Dose: 325 mg Bisacodyl (Dulcolax) 10 mg CA QDAY PRN PRN Reason: Constipation unrelieved by MOM Dexamethasone (Decadron) 8 mg IV ONCE ONE Stop: 04/16/17 10:44 Valproate Sodium 500 mg/ (Sodium Chloride) 105 mls @ 100 mls/hr IV ONCE ONE Stop: 04/16/17 11:46 Lorazepam (Ativan) 2 mg IV Q4H PRN PRN Reason: Seizures Oxcarbazepine (Trileptal) 600 mg PO BID [facility] Sumatriptan Succinate (Imitrex) 50 mg PO Q4H PRN PRN Reason: Migraine Headache Last Admin: 04/16/17 10:39 Dose: 50 mg Review of Systems All systems: negative Neurological: seizures, headaches, migraines, no weakness, no numbness, no tingling, no change in speech, no change in mentation, no confusion, no gait dysfunction, no motor disturbance, no sensory deficit, no double vision, no loss of vision Physical Examination - Vital Signs Vital Signs: Vital Signs Pulse Resp BP Pulse Ox 108 H 18 142/82 99 04/15/17 07:48 04/15/17 07:48 04/15/17 07:48 04/15/17 07:48 - Constitutional General appearance: comfortable - EENT EENT: Present: ATNC, PERRL, mucous membranes moist, hearing intact, vision intact - Respiratory Respiratory: Present: chest non-tender, normal breath sounds, no respiratory distress - Cardiovascular Cardiovascular: Present: regular rate Extremities: Present: no peripheral edema bilatateraly, no clubbing, cyanosis, no inflammation, no ischemia or petechiae - Gastrointestinal Gastrointestinal: Present: normoactive bowel sounds, soft, non-distended - Integumentary Integumentary: Present: normal - Neurologic Cranial nerve examination: PERRL, EOMI, VFF, V1/V2/V3 grossly intact, face symmetric, tongue midline, intact, Intact Vestibulo-ocular r, facial droop Speech examination: intact Sensorimotor examination: intact Motor examination - right side: 5/5: biceps, triceps, wrist flexion, wrist extension, licensed occupational therapy assistant, hip flexors, knee extensors, dorsiflexion, toe extension (EHL) , plantarflexion Motor examination - left side: 5/5: biceps, triceps, wrist flexion, wrist extension, licensed occupational therapy assistant, hip flexors, knee extensors, dorsiflexion, toe extension (EHL) , plantarflexion Detailed sensory examination: intact Reflex and gait examination: intact Reflexes: 2+: ankle, bicep, knee, tricep - Musculoskeletal Musculoskeletal: Present: no fluid collection, no pain, normal range of motion - Psychiatric Psychiatric: Present: mood/affect appropriate, cooperative Results - Laboratory Findings CBC and BMP: 04/16/17 04:33 04/16/17 04:33 Abnormal Lab Findings: Abnormal Labs 04/16/17 04/16/17 04:33 04:33 Lymph % (Auto) 36.7 H Maury % (Auto) 7.6 H Glucose 109 H Assessment and Plan 26 YO F Hx epilepsy since 2011 compliant and previously well controlled for 5 years on Trileptal 500mg BID recent stress of typical migraine and buying home brought to the hospital by EMS for breakthrough seizure and altered mental status on 04/15. She was aphasic in ED but has resolved to baseline only complaining of typical migraine MCCLAIN. MRI Brain/MRA head/neck neg. Plan and Recommendation: 1. Telemetry bed w/ Q4 hour neuro checks & Sz precautions 2. Labs: Serum/Urine Tox, UA/UCx, Electrolytes especially Na, Ca, Mg, and Glucose, TSH/Ammonia and correct as necessary 3. Cont Infectious work up/medical management for UTI, PNA, cellulitis, bacteremia, etc. 4. Avoid hyponatremia, hypo/hyper-calcemia, hypo/hyperglycemia, acidosis, hypoxia/hypoxemia, hypercarbia/hypercapnia 5. Avoid institution of any psychoactive medications (e.g. antihistamines, anticholinergics, BZD, hypnotics, opiates) as able unless low doses of low potency antipsychotic needed for behavioral issues complicating medical care 6. AED therapy: Resume Trileptal but increase to 600mg BID 7. MCCLAIN treatment: Decadron 8mg IV x 1, VPA 750mg IV x 1, Sumatriptan 50mg PO x 1 can be D/C w/ Medrol Dose Laz. 8. Avoid meds that can lower sz threshold e.g. Tramadol, fluroquinolones, carbapenems 9. If Hx obtained to suggest EtOH dependence, supplement Thiamine, Folate and cont CIWA Protocol 10. Pt advised of [place] driving regulations: report date of presumed Seizure/ unexplained loss of consciousness/awareness spell to [facility], refrain from operating a motor vehicle for 6 months after this date, and avoid unsupervised activity particularly around water or heights 11. Neurologically clear for discharge once resolved fully to baseline w/o recurrent seizure for 24 hrs. 12. Follow up as outpt with Neurology.
[2017-04-16] MEDS ORDERED: TRILEPTAL PO SCH (11:00)
[2017-04-16] MEDS ORDERED: DepaCON 500 MG in NACL 0.9% 100 ML IV ONE (12:00)
[2017-04-16] MEDS ORDERED: DECADRON IV ONE (12:00)
[2017-04-16 16:32] VITALS: BP 128/76
== END 2017-04-16 17:15 | disposition home or self-care (01) | DRG 100 ==
LOC: EDBD → ED 07:42 → 3A 10:35
PROVIDERS: ADMIT Internal Medicine; ATTEND Internal Medicine
DX: G40.409 Other generalized epilepsy and epileptic syndromes, not intractable, without status epilepticus (principal); I63.9 Cerebral infarction, unspecified; R47.1 Dysarthria and anarthria; F17.200 Nicotine dependence, unspecified, uncomplicated; G43.909 Migraine, unspecified, not intractable, without status migrainosus; R47.01 Aphasia; Z71.6 Tobacco abuse counseling; Z82.49 Family history of ischemic heart disease and other diseases of the circulatory system; Z83.3 Family history of diabetes mellitus
CPT/HCPCS: 36415; 70450; 70544; 70547; 70551; 80048; 80053; 80307; 80320; 81001; 82140; 82550; 82553; 84484; 84702; 85025; 85610; 85670; 85730; 93005; 93010; 94760; G0480; J1100; J7042

== ENCOUNTER 2019-05-12 08:33 | Emergency (ER) | payer OTHER ==
[2019-05-12 10:21] LABS: Basophils # (Auto) 0.1 K/mm3 (0.0-0.1); Basophils % (Auto) 0.8 % (0.0-1.8); Eosinophils # (Auto) 0.1 K/mm3 (0.0-0.4); Eosinophils % (Auto) 0.7 % (0.0-4.3); Hematocrit 40.6 % (30.3-42.9); Hemoglobin 14.2 gm/dl (10.1-14.3); Lymphocytes # (Auto) 1.7 K/mm3 (1.2-5.4); Lymphocytes % (Auto) 19.4 % (13.4-35.0); Mean Corpuscular HGB Conc 35 % (30-34); Mean Corpuscular Volume 89 fl (79-97); Monocytes # (Auto) 0.7 K/mm3 (0.0-0.8); Monocytes % (Auto) 7.6 % (0.0-7.3); Platelet Count 308 K/mm3 (140-440); Red Blood Count 4.57 M/mm3 (3.65-5.03); Red Cell Distribution Width 13.2 % (13.2-15.2)
--- NOTE | 2019-05-12 10:27 | Cat Scan Report ---
CT HEAD WITHOUT CONTRAST INDICATION : Seizure, electrocution, slurred speech. TECHNIQUE: Axial imaging performed from the skull apex through the skull base without the use of con trast. Sagittal and coronal reformatted images. All CT scans at this location are performed using C T dose reduction for ALARA by means of automated exposure control. COMPARISON: 04/15/2017 FINDINGS: Parenchyma: No acute intracranial hemorrhage or parenchymal abnormality. Ventricles: Ventricles are normal in size and appear symmetric. Bones: No acute osseous abnormality. Sinuses: Sinuses and mastoid air cells are clear. Soft tissues: Soft tissues including the orbits appear normal. IMPRESSION: No acute abnormality. Signer Name: Tim Tovar Jr, MD Signed: 05/12/2019 10:23 AM Workstation Name: [id number]
[2019-05-12 10:43] LABS: BUN/Creatinine Ratio 13; Blood Urea Nitrogen 10 mg/dL (7-17); Calcium 9.7 mg/dL (8.4-10.2); Hemolysis Index 4
[2019-05-12] MEDS ORDERED: KEPPRA 1,000 MG/NS 0.75% 100ML 1,000 MG/100 ML BAG IV ONE (10:48)
[2019-05-12] MEDS ORDERED: ATIVAN IV ONE (10:49)
[2019-05-12] MEDS ORDERED: FIORICET PO ONE (11:41)
[2019-05-12] MEDS ORDERED: BENADRYL IV ONE (11:43)
[2019-05-12] MEDS ORDERED: REGLAN IV ONE (11:43)
[2019-05-12] MEDS ORDERED: IMITREX PO ONE (12:00)
[2019-05-12] MEDS ORDERED: NACL 0.9% 1000 ML 1,000 ML IV ONE (12:14)
--- NOTE | 2019-05-12 12:14 | Emergency Department Report ---
ED General Adult HPI - General Chief complaint: Seizure Stated complaint: APHASIA Time Seen by Provider: 05/12/19 09:53 Source: patient, family, EMS Mode of arrival: Stretcher Limitations: Language Barrier, Physical Limitation - History of Present Illness Initial comments: Patient presents to the emergency department via EMS for an electrocution and seizure activity. Upon the patient's arrival she is having difficulty speaking which the patient's friend states is more of her seizures. Per the patient's guest patient stepped on 110 V exposed wire at work. The patient has a history of seizures and migraines. In route to the ED the patient had a seizure. Patient has no complaints of sizable throbbing headache which is not the worse headache of her life. -: Sudden Severity scale (0 -10): 3 Quality: other (throbbing) Consistency: now resolved Improves with: none Worsens with: none Associated Symptoms: denies other symptoms Treatments Prior to Arrival: none - Related Data Home Medications Medication Instructions Recorded Confirmed Last Taken carBAMazepine [TEGretol] 200 mg PO Q12HR 04/15/17 04/15/17 04/14/17 Previous Rx's Medication Instructions Recorded Last Taken Type OXcarbazepine [Trileptal] 600 mg PO BID #60 tablet 04/16/17 Unknown Rx SUMAtriptan succinate [Imitrex] 50 mg PO Q4H PRN #14 tablet 04/16/17 Unknown Rx Butalb/Acetamin/Caff 50-325-40 1 tab PO Q6HR PRN #24 tab 05/12/19 Unknown Rx [Fioricet] Allergies Allergy/AdvReac Type Severity Reaction Status Date / Time No Known Allergies Allergy Verified 05/12/19 09:35 ED Review of Systems ROS: Stated complaint: APHASIA Other details as noted in HPI Comment: All other systems reviewed and negative Constitutional: denies: chills, fever Eyes: denies: eye pain, eye discharge, vision change ENT: denies: ear pain, throat pain Respiratory: denies: cough, shortness of breath, wheezing Cardiovascular: denies: chest pain, palpitations Endocrine: no symptoms reported Gastrointestinal: denies: abdominal pain, nausea, diarrhea Genitourinary: denies: urgency, dysuria, discharge Musculoskeletal: denies: back pain, joint swelling, arthralgia Skin: denies: rash, lesions Neurological: denies: headache, weakness, paresthesias Psychiatric: denies: anxiety, depression Hematological/Lymphatic: denies: easy bleeding, easy bruising ED Past Medical Hx - Past Medical History Previous Medical History?: Yes Hx Seizures: Yes - Surgical History Additional Surgical History: Unknown - Social History Smoking Status: Never Smoker Substance Use Type: Alcohol - Medications Home Medications: Home Medications Medication Instructions Recorded Confirmed Last Taken Type carBAMazepine [TEGretol] 200 mg PO Q12HR 04/15/17 04/15/17 04/14/17 History OXcarbazepine [Trileptal] 600 mg PO BID #60 tablet 04/16/17 Unknown Rx SUMAtriptan succinate [Imitrex] 50 mg PO Q4H PRN #14 tablet 04/16/17 Unknown Rx Butalb/Acetamin/Caff 50-325-40 1 tab PO Q6HR PRN #24 tab 05/12/19 Unknown Rx [Fioricet] ED Physical Exam - General Limitations: Language Barrier, Physical Limitation General appearance: alert, in no apparent distress - Head Head exam: Present: atraumatic, normocephalic - Eye Eye exam: Present: normal appearance, PERRL, EOMI - ENT ENT exam: Present: mucous membranes moist - Neck Neck exam: Present: normal inspection - Respiratory Respiratory exam: Present: normal lung sounds bilaterally. Absent: respiratory distress - Cardiovascular Cardiovascular Exam: Present: regular rate, normal rhythm. Absent: systolic murmur, diastolic murmur, rubs, gallop - GI/Abdominal GI/Abdominal exam: Present: soft, normal bowel sounds. Absent: distended, tenderness - Extremities Exam Extremities exam: Present: normal inspection - Back Exam Back exam: Present: normal inspection - Neurological Exam Neurological exam: Present: alert, oriented X3, CN II-XII intact. Absent: motor sensory deficit - Psychiatric Psychiatric exam: Present: normal affect, normal mood - Skin Skin exam: Present: warm, dry, intact, normal color. Absent: rash ED Course Vital Signs 05/12/19 05/12/19 05/12/19 09:29 12:41 14:02 Temperature 98.3 F Pulse Rate 95 H 84 87 Respiratory 18 18 18 Rate Blood Pressure 109/68 98/59 108/66 [Left] O2 Sat by Pulse 98 98 98 Oximetry ED Medical Decision Making - Lab Data Result diagrams: 05/12/19 10:08 05/12/19 10:08 Lab Results 05/12/19 05/12/19 05/12/19 Range/Units 10:08 10:08 12:14 WBC 8.9 (4.5-11.0) K/mm3 RBC 4.57 (3.65-5.03) M/mm3 Hgb 14.2 (10.1-14.3) gm/dl Hct 40.6 (30.3-42.9) % MCV 89 (79-97) fl MCH 31 (28-32) pg MCHC 35 H (30-34) % RDW 13.2 (13.2-15.2) % Plt Count 308 (140-440) K/mm3 Lymph % (Auto) 19.4 (13.4-35.0) % [place] % (Auto) 7.6 H (0.0-7.3) % Eos % (Auto) 0.7 (0.0-4.3) % Baso % (Auto) 0.8 (0.0-1.8) % Lymph # 1.7 (1.2-5.4) K/mm3 Assumption # 0.7 (0.0-0.8) K/mm3 Eos # 0.1 (0.0-0.4) K/mm3 Baso # 0.1 (0.0-0.1) K/mm3 Seg Neutrophils % 71.5 H (40.0-70.0) % Seg Neutrophils # 6.4 (1.8-7.7) K/mm3 Sodium 142 (137-145) mmol/L Potassium 4.1 (3.6-5.0) mmol/L Chloride 105.3 (98-107) mmol/L Carbon Dioxide 22 (22-30) mmol/L Anion Gap 19 mmol/L BUN 10 (7-17) mg/dL Creatinine 0.8 (0.7-1.2) mg/dL Estimated GFR > 60 ml/min BUN/Creatinine Ratio 13 % Glucose 98 (65-100) mg/dL Calcium 9.7 (8.4-10.2) mg/dL Phosphorus 2.90 (2.5-4.5) mg/dL Magnesium 1.90 (1.7-2.3) mg/dL Total Creatine Kinase 136 H (30-135) units/L - EKG Data -: EKG Interpreted by Me EKG shows normal: sinus rhythm Rate: normal - Radiology Data Radiology results: report reviewed - Medical Decision Making Headache was resolved with medications patient observed for 6 hours in the ED on web architect without reportable arrhythmias Critical care attestation.: If time is entered above; I have spent that time in minutes in the direct care of this critically ill patient, excluding procedure time. ED Disposition Clinical Impression: Electric current accident, Seizure, Headache Disposition: TO HOME OR SELFCARE Is pt being admited?: No Does the pt Need Aspirin: No Condition: Stable Instructions: Acute Headache (ED), Recurrent Seizures Adult (ED) Additional Instructions: return if worse or if you have Rapid Heart rate Prescriptions: Butalb/Acetamin/Caff 50-325-40 [Fioricet] 1 tab PO Q6HR PRN #24 tab PRN Reason: Headache Referrals: [facility] MD SUSANNAH [Primary Care Provider] - 3-5 Days CL MAYA MD [Staff Physician] - 3-5 Days ALFONSO MANCUSO MD [Staff Physician] - 3-5 Days [facility] [Provider Group] - 3-5 Days [facility] [Provider Group] - 3-5 Days Time of Disposition: 14:35
[2019-05-12 14:03] VITALS: BP 108/66
== END 2019-05-12 15:05 | disposition home or self-care (01) ==
LOC: ED 08:33
DX: T75.4XXA Electrocution, initial encounter (principal); G43.909 Migraine, unspecified, not intractable, without status migrainosus; R56.9 Unspecified convulsions; W86.8XXA Exposure to other electric current, initial encounter; Y93.89 Activity, other specified; Y92.69 Other specified industrial and construction area as the place of occurrence of the external cause; Y99.8 Other external cause status
CPT/HCPCS: 36415; 70450; 80048; 82550; 83735; 84100; 85025; 93005; 93010; 96365; 96375; 99285; J1953; J2060; J1200; J2765